=== PATIENT | female | born 1990 | race Caucasian/White ===

== ENCOUNTER 2023-11-23 08:48 | Outpatient (REF) | payer BC, SELFPAY ==
--- NOTE | ~2023-11-23 | US_ITS ---
EXAMINATION: US PELVIS CLINICAL INFORMATION: Dysmenorrhea, spotting, cramping, last menstrual period 2019 at time of IUD insertion per patient statement to [employer]. COMPARISON: None available. TECHNIQUE: Ultrasound of the pelvis is performed using both transabdominal and transvaginal transducers along with Doppler. Transvaginal imaging is performed due to inadequate visualization transabdominally. FINDINGS: Uterus: The uterus is anteverted and measures 6.3 x 4.0 x 5.4 cm. The double wall endometrial thickness is 6 mm. Diffusely heterogeneous uterine echotexture. A 2.8 x 2.2 x 2.6 cm right fundal peripheral fibroid. IUD in place within the endometrial cavity. Left ovary measures 3.5 x 3.6 x 3.0 cm, volume 19.5 mL. Left ovarian 2.9 x 2.5 x 2.6 cm cyst is mildly complex with peripheral septations and possible nodularity. Right ovary measures 2.7 x 2.0 x 1.9 cm, volume 5.3 mL, and is unremarkable. Limited visualization due to bowel gas. US/US pelvic and transvaginal IMPRESSION: 1. IUD in place within the endometrial cavity. 2. Right fundal fibroid. 3. Left ovarian 2.9 cm cyst with peripheral septations and possible nodularity. Recommend follow-up ultrasound in 6-8 weeks.
== END 2023-11-23 08:49 | disposition home or self-care (01) ==
LOC: HO.UMASIMG 08:48
PROVIDERS: Visit Provider Family Medicine
DX: F64.9 Gender identity disorder, unspecified (principal); R53.83 Other fatigue; N94.6 Dysmenorrhea, unspecified
CPT/HCPCS: 76830; 76856

== ENCOUNTER 2024-01-04 05:57 | Outpatient (REF) | payer BC, SELFPAY ==
--- NOTE | ~2024-01-04 | US_ITS ---
EXAMINATION: US PELVIS CLINICAL INFORMATION: Left ovarian cyst. COMPARISON: Pelvic ultrasound 11/23/2023: Left ovarian 2.9 cm cyst with peripheral septations and possible nodularity. Recommend follow-up ultrasound in 6-8 weeks. TECHNIQUE: Ultrasound of the pelvis is performed using both transabdominal and transvaginal transducers along with Doppler. Transvaginal imaging is performed due to inadequate visualization transabdominally. FINDINGS: Uterus: The uterus is anteverted and measures 7.0 x 2.6 x 4.6 cm cm. The double wall endometrial thickness is 3 mm. An IUD is present in the endometrial canal in good position. The uterus is smooth in contour and has normal myometrial echogenicity. Again seen is a fibroid at the fundus on the right measuring 2.6 x 2.1 x 1.7 cm. Adnexa: Both ovaries are visualized. There is normal color flow to the adnexa. There is no ovarian torsion. There is no pelvic ascites or fluid collection. Right ovary measures 2.0 x 2.6 x 2.6 for a volume of 6 mL. Left ovary measures 2.1 x 2.2 x 1.9 cm for a volume of 5 mL and contains a simple follicular cyst measuring 1.1 cm. Previously noted 2.9 cm cyst with peripheral septations and nodularity on the left is no longer present. US/US pelvic and transvaginal IMPRESSION: 1. Previously noted complex left ovarian cyst has resolved. 2. Unchanged uterine fibroid. 3. IUD in good position.
== END 2024-01-04 05:58 | disposition home or self-care (01) ==
LOC: HO.UMASIMG 05:57
PROVIDERS: Visit Provider Family Medicine
DX: F64.9 Gender identity disorder, unspecified (principal); N83.299 Other ovarian cyst, unspecified side
CPT/HCPCS: 76830; 76856